=== PATIENT | female | born 1965 | race Caucasian/White ===

== ENCOUNTER → 2017-10-26 | Outpatient (CLI) | payer BC ==
[~2017-10-26] VITALS: Ht 165.1 cm; Wt 86.4 kg
[~2017-10-26] MED LIST: ATORVASTATIN CA40 MG PO; CHLORPHEN4 MG PO; CYCLOBENZAPRINE10 M1 PO; DICLOFENAC SOD100 M1 PO; DIFLUCAN200 M1 PO; DUREZOL5 ML OP; EXCEDRIN MIGRA1 EACH PO; GLUCOSAMINE-CH1 EA19 PO; LEVAQUIN 5500 MG/TA1 PO; MUCINEX DM 30 M1 TE1 PO; MULTI-VITAMINS1 TA1 PO; NEXIUM 40MG40 MG PO; PRISTIQ100 MG PO; SUDAFED 12-HOU120 MG PO; TOPROL XL 50MG50 MG PO; TYLENOL 325MG325 MG PO; ULTRAM50 M1 PO; ZETIA10 M1 PO
[2017-10-26 10:39] VITALS: BP 122/86
== END ==
LOC: AMSURD 09:33
DX: Z01.818 Encounter for other preprocedural examination (principal); M17.0 Bilateral primary osteoarthritis of knee

== ENCOUNTER → 2018-07-06 | Outpatient (CLI) | payer BC ==
[~2018-07-06] VITALS: Ht 165.1 cm; Wt 86.4 kg
[~2018-07-06] MED LIST changes: +BENADRYL25 M2 PO
[2018-07-06 14:46] VITALS: BP 138/88
== END ==
LOC: AMSURD 14:04
DX: Z01.818 Encounter for other preprocedural examination (principal); H26.9 Unspecified cataract

== ENCOUNTER → 2020-09-10 | Outpatient (CLI) | payer BC ==
[2018-07-06 14:46] VITALS: BP 138/88
== END ==
LOC: LAB 11:49
DX: J02.9 Acute pharyngitis, unspecified (principal); M79.10 Myalgia, unspecified site; R09.81 Nasal congestion; R09.89 Other specified symptoms and signs involving the circulatory and respiratory systems

== ENCOUNTER → 2022-02-18 | Outpatient (CLI) | payer BC | LOC: RAD 09:30 | DX: Z01.811 Encounter for preprocedural respiratory examination (principal); R94.31 Abnormal electrocardiogram [ECG] [EKG] ==